=== PATIENT | male | born 1950 | race Caucasian/White ===

== ENCOUNTER 2025-04-15 06:13 | Day surgery (SDC) | payer MEDICARE, OTHER ==
[2025-04-14 10:34] LABS: EOSINOPHILS # (AUTO) 0.1 X10'3 (0-0.9); EOSINOPHILS % (AUTO) 2.4 % (0-6); HEMATOCRIT 45.8 % (42.0-52.0); HEMOGLOBIN 15.4 g/dl (14.0-17.9); LYMPHOCYTES # (AUTO) 1.1 X10'3 (1.1-4.8); LYMPHOCYTES % (AUTO) 21.6 % (21-51); MEAN CORPUSCULAR HEMOGLOBIN 33.6 PG (27.0-31.0); MEAN CORPUSCULAR HGB CONC 33.6 g/dL (33.0-36.5); MEAN CORPUSCULAR VOLUME 99.8 FL (78-98); MEAN PLATELET VOLUME 9.8 FL (7.4-10.4); MONOCYTES # (AUTO) 0.7 X10'3 (0-0.9); PLATELET COUNT 142 X10'3 (140-440); RED BLOOD COUNT 4.58 X10'6 (4.70-6.10); RED CELL DISTRIBUTION WIDTH 13.9 % (11.5-14.5)
[2025-04-14 10:43] LABS: ALBUMIN 3.5 G/DL (3.4-5.0); ANION GAP 4 (8-16); BLOOD UREA NITROGEN 19 MG/DL (7-18); BUN/CREATININE RATIO 17.9 (10.0-20.0); CALCIUM 8.9 MG/DL (8.5-10.1); CHLORIDE 107 MMOL/L (99-107); CREATININE 1.06 MG/DL (0.60-1.10); GLUCOSE 64 MG/DL (70-104); POTASSIUM 3.9 MMOL/L (3.5-5.1); SODIUM 144 MMOL/L (135-145); TOTAL CARBON DIOXIDE 33.5 MMOL/L (24-32); eGFR 68 ML/MIN
[2025-04-14 10:49] LABS: APTT 25 SECONDS (22-32); PROTHROMBIN TIME 10.4 SECONDS (9.0-12.0)
[2025-04-15] VITALS (11 sets, daily range): BP systolic 123–151; BP diastolic 68–86; PULSE 57–72; RESP 13–20; TEMP 97.7; O2SAT 94–99
[~2025-04-15] VITALS: Ht 177.8 cm; Wt 76.7 kg
[2025-04-15] MEDS: ceFAZolin 2gm in dextrose, iso 50 ML IV ONE (06:35)
--- NOTE | 2025-04-15 06:39 | ELECTROCARDIOGRAPH REPORT ---
[facility] Test Date: 2025-04-15 Test Time: 06:35:29 Pat Name: ISABEL MORGAN Department: [facility] Patient ID: 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 Reading MD: Dr. DELILAH Kraft Measurements Intervals [place] Rate: 60 P: 41 CA: 204 QRS: 49 QRSD: 99 T: 27 QT: 415 QTc: 415 Interpretive Statements Sinus rhythm Multiple ventricular premature complexes Probable left atrial enlargement Electronically Signed On 04-15-2025 19:47:[address] DELILAH Kraft Please click the below link to view image of tracing.
[2025-04-15] MEDS ORDERED: OMEG-166 PO (06:50)
[2025-04-15] MEDS ORDERED: ASCO100031 PO (06:50)
[2025-04-15] MEDS ORDERED: FINA5TAB12 PO (06:50)
[2025-04-15] MEDS ORDERED: ASPI81TA52 PO (06:50)
[2025-04-15] MEDS ORDERED: UBID100C16 PO (06:50)
[2025-04-15] MEDS ORDERED: OSC500T PO (06:50)
[2025-04-15] MEDS ORDERED: ATOR40TA72 PO (06:50)
[2025-04-15] MEDS ORDERED: MAGN500C4 PO (06:50)
[2025-04-15] MEDS ORDERED: midazolam 1 mg/ML 2ml injection ONE ×2 (07:46→09:11)
[2025-04-15] MEDS ORDERED: fentaNYL/PF 50MCG/1 ML 2ML syringe ONE (07:46)
[2025-04-15] MEDS ORDERED: ceFAZolin 1000mg inj ONE (07:46)
[2025-04-15] MEDS ORDERED: LIDOcaine 1% W/epiNEPHrine 1:100,000 20ml vial ONE (07:46)
[2025-04-15] MEDS ORDERED: diphenhydrAMINE 50 mg/ml inj ONE (08:41)
[2025-04-15] MEDS ORDERED: HYDROcodone/acetaminophen 5mg/325mg tablet PO PRN (10:00)
[2025-04-15] MEDS ORDERED: HYDROcodone/acetaminophen 10/325mg tab PO PRN (10:00)
[2025-04-15] MEDS ORDERED: CEPH-585 PO (10:44)
[2025-04-15] MEDS: vancomycin/NS 1 GM ADD-VANTAGE 250 ML X 1 DOSE IV ONE (11:27)
--- NOTE | 2025-04-15 11:32 | RADIOLOGY REPORT ---
EXAM: DI CHEST,TWO VIEWS CLINICAL HISTORY: post pacemaker procedure COMPARISON: None TECHNIQUE: Frontal and lateral view of the chest was obtained FINDINGS: Lines and Tubes: Cardiac pacemaker projects over left chest wall. Lungs: No focal consolidation. Pleura: No effusion. No pneumothorax. Cardiomediastinal contours: Unremarkable Bones: No acute osseous abnormality. IMPRESSION: No acute cardiopulmonary disease.
--- NOTE | 2025-04-16 02:18 | CARDIOLOGY REPORT ---
DATE OF SERVICE: 04/15/2025 DICTATING PHYSICIAN: DELILAH Cassidy MD PERMANENT PACEMAKER IMPLANTATION PRIMARY PHYSICIAN: Dr. Floyd Carey's office. 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 His lowest heart rate was back in 2015 with 56 over the years. He had become progressively more bradycardic and last event monitor checkup on showed lowest heart rate was 47 and he had episodes of SVT. The patient has been having exertional fatigue and tiredness, occasional episodes of dizziness. After discussing risks, benefits, alternative options, the patient prefers to proceed with permanent pacemaker implantation. Risks, benefits, alternative options discussed, informed consent obtained. The patient also has episodes of SVT. PREPROCEDURAL DIAGNOSIS: Sick sinus syndrome with symptoms. POSTPROCEDURE DIAGNOSIS: Sick sinus syndrome with symptoms. PROCEDURES DONE: * Fluoroscopy. * AV sequential pacemaker implantation. * Conscious sedation time of 60 minutes. SURGEON: DELILAH Cassidy MD, [facility] ANALYTICAL LABORATORY TECHNICIAN SURGEON: None. ANESTHESIOLOGIST: None. ANESTHESIA: Local anesthesia with conscious sedation. COMPLICATIONS: None. BLOOD LOSS: Less than 5 mL. DESCRIPTION OF PROCEDURE: Left infraclavicular area was prepped and draped in the usual fashion. Two separate accesses were obtained to the left subclavian vein. Two micropuncture wires were replaced with 2 J-wires. Horizontal incision was placed in the left infraclavicular area. Using blunt dissection and electrocautery, subcutaneous prepectoral pacemaker pocket was fashioned. External ends of the J-wires were retrieved into the pacemaker pocket. Two 7-[place] sheaths were advanced over the J-wires. Through one of them, RV lead advanced to the RV apex. Appropriate pacing and sensing thresholds obtained. Through the RV lead, advanced RV apex. Appropriate pacing and sensing thresholds obtained. Sheath was removed by a peel-away technique and lead anchored to the subcutaneous with Ethibond. Through the second 7-[place] sheath, right atrial lead was advanced to the right atrium. J-wire was formed, screwed into the right atrial appendage. Appropriate pacing and sensing thresholds obtained. Sheath removed a peel-away technique and lead anchored to subcutaneous tissue with Ethibond. Pocket was irrigated with copious amount of antibiotic solution. Leads connected to the appropriate sockets of the pulse generator. Set screws were tightened. Tug test was performed. Pacemaker was suspended in the pacemaker pocket. Pocket closed with continuous 0 Vicryl, followed by intermittent 0 Vicryl, third layer of interrupted 2-0 Vicryl applied. Skin approximated with stapes. Pressure dressing applied. The patient tolerated the procedure well with no complications. DEVICE USED: Medtronic MRI compatible Olivia pacemaker, model #W3DR01, serial #[id number], Medtronic, 04/15/2025, left pectoral location. RIGHT ATRIAL LEAD: Model #726214, 52 cm long, serial #[id number], [employer]onic, 04/15/2025, right atrial appendage, P-wave amplitude 2 mV, ohms of impedance, pacing threshold of 1 at 0.4 milliseconds. RV LEAD: Model #5076, 58 cm long, serial #[id number], [employer]tronic, 04/15/2025, RV apex, R-wave amplitude of 5.6 mV, 665 ohms of impedance. Pacing threshold of 0.7 at 0.4 milliseconds. 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 DELILAH Cassidy MD TID: [id number] RECEIPT: [id number] SHOAIB/KENDY/MATT cc: Floyd Carey MD [facility]
== END 2025-04-15 14:57 | disposition home or self-care (01) ==
LOC: SSTAY O 06:13
PROVIDERS: ATTEND Internal Medicine Cardiovascular Disease
DX: I49.5 Sick sinus syndrome (principal); Z79.01 Long term (current) use of anticoagulants; E78.5 Hyperlipidemia, unspecified; E11.9 Type 2 diabetes mellitus without complications; Z98.49 Cataract extraction status, unspecified eye; Z98.890 Other specified postprocedural states; Z79.899 Other long term (current) drug therapy; I47.10 Supraventricular tachycardia, unspecified
CPT/HCPCS: 33208; 36415; 71046; 80048; 85025; 85610; 85730; 93005; 99152; 99153; A4565; A6402; C1785; C1898; J0690; J1200; J2250; J3010; J3370; J3490; J7030; Z7610; A6449